=== PATIENT | male | born 1965 | race Caucasian/White ===

== ENCOUNTER 2017-09-22 00:54 | Observation (INO) | payer OTHER ==
[2017-09-22] VITALS (25 sets, daily range): BP systolic 102–142; BP diastolic 61–87
[~2017-09-22] VITALS: Ht 182.9 cm; Wt 106.1 kg
--- OUTSIDE RECORDS SUMMARY | 2017-09-22 01:01 | XMS REPORT ---
Author Author JANEEN MARCELINO Organization [facility] Address [address] [place] [address] Care Team Providers Care Resolution Expert Name Role Phone MARCELINO VERNON Unavailable PROBLEMS Type Condition ICD9-CM Code [id number] Code Onset Dates Condition Status SNOMED Code Problem Panic disorder F41.0 Active 617692035 Problem Prediabetes R73.09 Active 9743866 Problem Left knee pain M25.562 Active 70836973 Problem Essential hypertension I10 Active 53969340 Problem Right knee pain M25.561 Active 16851807 ALLERGIES Substance Reaction Event Type Date Status N.K.D.A. Unknown Non Drug Allergy Apr, Unknown SOCIAL HISTORY No smoking Hx information available PLAN OF CARE Activity Details Follow Up 6 Months Reason:HTN VITAL SIGNS Height 72 in 2016-04-21 Weight 287 lbs 2016-04-21 Temperature 97.6 degrees Fahrenheit 2016-04-21 Heart Rate 74 bpm 2016-04-21 Respiratory Rate 18 2016-04-21 BMI 38.92 kg/m2 2016-04-21 Blood pressure systolic 110 mmHg 2016-04-21 Blood pressure diastolic 84 mmHg 2016-04-21 MEDICATIONS Medication Instructions Dosage Frequency Start Date End Date Duration Status Atenolol 50 MG Orally Once a day 1 tablet 24h 90 days Active Meloxicam 15 MG TAKE ONE TABLET BY MOUTH DAILY 90 Active Xanax 0.25 MG Orally Three times a day as needed 1 tablet Apr, Active Hydrochlorothiazide 25 MG Orally Once a day 1 tablet 24h 90 days Active Lisinopril 40 MG Orally Once a day 1 tablet 24h 90 days Active RESULTS No Results PROCEDURES Procedure Date Ordered Related Diagnosis Body Site COMPREHEN METABOLIC PANEL Apr 21, 2016 LIPID PANEL Apr 21, 2016 VENIPUNCT, ROUTINE* Apr 21, 2016 Office Visit, Est Pt., Level 3 Apr 21, 2016 IMMUNIZATIONS No Known Immunizations
--- OUTSIDE RECORDS SUMMARY | 2017-09-22 01:01 | XMS REPORT ---
Author Author MARCELINO VERNON [facility] Address [address] [place] [address] Care Team Providers Care Key Account Executive Name Role Phone MARCELINO VERNON Unavailable PROBLEMS Type Condition ICD9-CM Code [id number] Code Onset Dates Condition Status SNOMED Code Problem Panic disorder F41.0 Active 653449028 Problem Prediabetes R73.09 Active 8743391 Problem Right knee pain M25.561 Active 64899327 Problem Essential hypertension I10 Active 69404875 Problem Left knee pain M25.562 Active 06171417 ALLERGIES Unknown Allergies SOCIAL HISTORY No smoking Hx information available PLAN OF CARE VITAL SIGNS MEDICATIONS Unknown Medications RESULTS No Results PROCEDURES No Known procedures IMMUNIZATIONS No Known Immunizations
--- OUTSIDE RECORDS SUMMARY | 2017-09-22 01:01 | XMS REPORT ---
Author Author MARCELINO VERNON [facility] Address [address] [place] [address] Care Team Providers Care Commercial Loan Administrator Name Role Phone MARCELINO VERNON Unavailable PROBLEMS Type Condition ICD9-CM Code [id number] Code Onset Dates Condition Status SNOMED Code Problem Panic disorder F41.0 Active 895640624 Problem Prediabetes R73.09 Active 6075738 Problem Left knee pain M25.562 Active 36989639 Problem Essential hypertension I10 Active 89182813 Problem Right knee pain M25.561 Active 72134487 ALLERGIES Unknown Allergies SOCIAL HISTORY No smoking Hx information available PLAN OF CARE VITAL SIGNS MEDICATIONS Medication Instructions Dosage Frequency Start Date End Date Duration Status Meloxicam 15 MG Orally Once a day 1 tablet 24h 90 days Active RESULTS No Results PROCEDURES No Known procedures IMMUNIZATIONS No Known Immunizations
--- OUTSIDE RECORDS SUMMARY | 2017-09-22 01:01 | XMS REPORT ---
Author Author MARCELINO VERNON [facility] Address [address] [place] [address] Care Team Providers Care Information Systems Administrator Name Role Phone MARCELINO VERNON Unavailable PROBLEMS Type Condition ICD9-CM Code [id number] Code Onset Dates Condition Status SNOMED Code Problem Panic disorder F41.0 Active 420005497 Problem Prediabetes R73.09 Active 5979309 Problem Left knee pain M25.562 Active 17603800 Problem Essential hypertension I10 Active 67101559 Problem Right knee pain M25.561 Active 02645223 ALLERGIES Unknown Allergies SOCIAL HISTORY No smoking Hx information available PLAN OF CARE VITAL SIGNS MEDICATIONS Unknown Medications RESULTS No Results PROCEDURES No Known procedures IMMUNIZATIONS No Known Immunizations
--- OUTSIDE RECORDS SUMMARY | 2017-09-22 01:01 | XMS REPORT ---
Author Author MARCELINO VERNON Organization [employer] Address Unknown Phone Unavailable Care Team Providers Care X Ray Physician Name Role Phone MARCELINO VERNON CP Unavailable Allergies No Known Allergies Problems Problem Type Condition Code Onset Dates Condition Status Problem Prediabetes R73.09 Active Problem Essential hypertension I10 Active Problem Panic disorder F41.0 Active Problem Left knee pain M25.562 Active Problem Right knee pain M25.561 Active Medications Medication Code System Code Instructions Start Date End Date Status Dosage Celebrex [facility] [address]-40 200 MG Orally Once a day as needed May 21, 2015 August 26, 2015 1 capsule Results No Known Results Summary Purpose [employer] Submission
--- OUTSIDE RECORDS SUMMARY | 2017-09-22 01:01 | XMS REPORT ---
Author Author MARCELINO VERNON [employer] Address Unknown Phone Unavailable Care Team Providers Care Metal Window Screen Assembler Name Role Phone MARCELINO VERNON CP Unavailable Allergies, Adverse Reactions, Alerts Substance Reaction Event Type N.K.D.A. Info Not Available Non Drug Allergy Problems Problem Type Condition Code Onset Dates Condition Status Assessment Colon cancer screening Z12.11 Active Assessment Dermal nevus D22.9 Active Problem Prediabetes R73.09 Active Problem Essential hypertension I10 Active Problem Panic disorder F41.0 Active Assessment Essential hypertension I10 Active Assessment Panic disorder F41.0 Active Problem Left knee pain M25.562 Active Problem Right knee pain M25.561 Active Medications Medication Code System Code Instructions Start Date End Date Status Dosage Atenolol [facility] [address]-46 50 MG Orally Once a day 1 tablet Meloxicam [facility] 64379121199 15 MG TAKE ONE TABLET BY MOUTH DAILY Lisinopril [facility] [address]-48 40 MG Orally Once a day 1 tablet Xanax [facility] [address]-78 0.25 MG Orally Three times a day as needed Apr 25, 2015 1 tablet Hydrochlorothiazide [facility] [address]-41 25 MG Orally Once a day 1 tablet Celebrex [facility] [address]-38 200 mg October 18, 2013 1 capsule by Oral route 1 time per day PRN pain Procedures Procedure Coding System Code Date COMPLETE CBC W/AUTO DIFF WBC CPT-4 32106 Apr 25, 2015 LIPID PANEL CPT-4 21608 Apr 25, 2015 COMPREHEN METABOLIC PANEL CPT-4 25049 Apr 25, 2015 VENIPUNCT, ROUTINE* CPT-4 40519 Apr 25, 2015 Office Visit, Est Pt., Level 3 CPT-4 25591 Apr 25, 2015 Vital Signs Date/Time: Apr 25, 2015 Temperature 98.8 F Weight 278.4 lbs Height 72 in BMI 37.75 Index Blood Pressure Diastolic 76 mmHg Blood Pressure Systolic 130 mmHg Cardiac Monitoring Heart Rate 64 bpm Results Name Result Date Reference Range Unit Abnormality Flag LIPID PANEL ----HDL Cholesterol 40 91084627 >39 mg/dL ----VLDL Cholesterol Patrice 39 95715289 5-40 mg/dL ----LDL Cholesterol Calc 83 02304980 0-99 mg/dL ----Cholesterol, Total 162 48865267 100-199 mg/dL ----Triglycerides 196 62053917 0-149 mg/dL H CMP ----Globulin, Total 2.3 56777912 1.5-4.5 g/dL ----eGFR If Africn Am 89 71458980 >59 mL/min/1.73 ----eGFR If NonAfricn Am 77 71958136 >59 mL/min/1.73 ----Albumin, Serum 4.4 49764525 3.5-5.5 g/dL ----Sodium, Serum 142 77196069 134-144 mmol/L ----Protein, Total, Serum 6.7 39684971 6.0-8.5 g/dL ----BUN/Creatinine Ratio 17 60294687 9-20 ----Calcium, Serum 9.4 38718735 8.7-10.2 mg/dL ----AST (SGOT) 26 32992887 0-40 IU/L ----Glucose, Serum 123 18179650 65-99 mg/dL H ----Alkaline Phosphatase, S 54 61808747 39-117 IU/L ----Bilirubin, Total 0.8 81829977 0.0-1.2 mg/dL ----Creatinine, Serum 1.11 21032541 0.76-1.27 mg/dL ----A/G Ratio 1.9 71748791 1.1-2.5 ----BUN 19 94193155 6-24 mg/dL ----Carbon Dioxide, Total 24 43432005 18-29 mmol/L ----ALT (SGPT) 21 73486333 0-44 IU/L ----Potassium, Serum 4.2 28836363 3.5-5.2 mmol/L ----Chloride, Serum 102 73030225 97-108 mmol/L ROUTINE VENIPUNCTURE CBC ----MCHC 34.3 90204971 31.5-35.7 g/dL ----MCH 29.8 35432094 26.6-33.0 pg ----Platelets 234 66314514 150-379 x10E3/uL ----RDW 13.8 51418443 12.3-15.4 % ----Immature Granulocytes 0 33132695 % ----Immature Grans (Abs) 0.0 80862542 0.0-0.1 x10E3/uL ----Lymphs 27 04267320 % ----Monocytes 8 03295508 % ----Neutrophils 55 11154093 % ----Neutrophils (Absolute) 4.7 01334720 1.4-7.0 x10E3/uL ----Hematocrit 44.9 13154562 37.5-51.0 % ----Lymphs (Absolute) 2.2 20553040 0.7-3.1 x10E3/uL ----MCV 87 67683878 79-97 fL ----RBC 5.17 87545584 4.14-5.80 x10E6/uL ----Eos 9 22387522 % ----Basos 1 58166120 % ----Hemoglobin 15.4 31731123 12.6-17.7 g/dL ----Baso (Absolute) 0.1 55861377 0.0-0.2 x10E3/uL ----WBC 8.3 22496990 3.4-10.8 x10E3/uL ----Monocytes(Absolute) 0.7 83447465 0.1-0.9 x10E3/uL ----Eos (Absolute) 0.7 61091793 0.0-0.4 x10E3/uL H Summary Purpose [employer] Submission
--- OUTSIDE RECORDS SUMMARY | 2017-09-22 01:01 | XMS REPORT ---
Author Author MARCELINO VERNON Organization [employer] Address Unknown Phone Unavailable Care Team Providers Care Receivables Specialist Name Role Phone MARCELINO VERNON CP Unavailable Allergies No Known Allergies Problems Problem Type Condition Code Onset Dates Condition Status Problem Prediabetes R73.09 Active Problem Essential hypertension I10 Active Problem Panic disorder F41.0 Active Problem Left knee pain M25.562 Active Problem Right knee pain M25.561 Active Medications Medication Code System Code Instructions Start Date End Date Status Dosage Celebrex [facility] [address]-08 200 MG Orally Once a day as needed May 21, 2015 August 19, 2015 1 capsule Results No Known Results Summary Purpose [employer] Submission
[2017-09-22] MEDS ORDERED: DEXAMETHASONE PF 10 MG/ML (DECADRON) VIAL IV STA ×2 (01:35→02:19)
[2017-09-22] MEDS ORDERED: diphenhydrAMINE 50 MG/ML INJ (BENADRYL) IV STA (01:35)
[2017-09-22] MEDS ORDERED: methylPREDNISolone 125 MG (Solu-MEDROL) VIAL IV STA (01:35)
[2017-09-22] MEDS ORDERED: raNItidine 50 MG/2 ML INJ (ZANTAC) IV STA (01:35)
[2017-09-22] MEDS ORDERED: DEXAMETHASONE 10 MG/ML (DECADRON) 1 ML VIAL ONE ×2 (01:39→02:24)
[2017-09-22] MEDS ORDERED: EPINEPHrine INJECTION 1 MG/ML AMP IM ONE ×2 (01:45→02:30)
--- NOTE | 2017-09-22 01:55 | ED EENT ---
History of Present Illness General Chief Complaint: Oral/Throat Problems Stated Complaint: BIT TONGUE-SWOLLEN,CAN HARDLY TALK Nursing Triage Note: PT PRESENTS TO ER WITH COMPLAINT OF SWOLLEN TONGUE. PT STATES IT STARTED AROUND 8PM. STATES HE TOOK TYLENOL PM AROUND MIDNIGHT. STATES HE FELL ASLEEP AND MIGHT OF BITTEN TONGUE WHILE SLEEPING SINCE IT IS SORE. DOES NOT KNOW WHAT CAUSED THE SWELLING. STATES HE STARTED AMOXICILLIN AND DIFLUCAN ON TUESDAY. Source: patient History of Present Illness Date Seen by Provider: Sep 22, 2017 Time Seen by Provider: 01:25 Initial Comments PT ARRIVES VIA POV FROM HOME C/O TONGUE SWELLING SINCE 1999 GISSELLE TOOK TYLENOL PM JUST BEFORE MIDNIGHT--WAS ABLE TO SWALLOW OK AT THAT TIME WENT TO BED AROUND MIDNIGHT AND WOKE UP AT 0030 CHOKING AND HAVING DIFFICULTY SWALLOWING SALIVA, MAKING LOTS OF SALIVA NO SHORTNESS OF BREATH OR WHEEZING NO RASH OR ITCHING OR SWELLING ANYWHERE ELSE PT IS ON LISINOPRIL + ATENOLOL FOR HTN, HAS BEEN ON FOR YEARS, AND NO RECENT CHANGES IN DOSES PT IS ALSO ON DIFLUCAN AND AMOXIL SINCE TUESDAY FOR URI SYMPTOMS AND POSSIBLE THRUSH AND "POSSIBLE PNEUMONIA" --HAS HAD THOSE SYMPTOMS FOR OVER A WEEK 3 WEEKS AGO WAS HAVING "GI ISSUES" AND WAS GIVEN RX FOR CIPRO-THOSE SYMPTOMS RESOLVED, THEN HE BEGAN HAVING COUGH/CONGESTION SYMPTOMS STATES HE FELT GREAT YESTERDAY AND NO RESPIRATORY SYMPTOMS HAS BEEN ON ALL OF THESE MEDICATIONS BEFORE AND NOT HAD ANY PROBLEMS NO HISTORY OF SIMILAR [facility]CP: [facility], JAMIE CHAVEZ/DR. DOWNING Allergies and Home Medications Allergies Coded Allergies: No Known Drug Allergies (Unverified , 09/22/17) Patient Home Medication List Home Medication List Reviewed: Yes Review of Systems Constitutional: no symptoms reported Eyes: No Symptoms Reported Ears: No Symptoms Reported Nose: no symptoms reported Mouth: see HPI Throat: see HPI Respiratory: no symptoms reported, see HPI; No cough, No short of breath, No stridor, No wheezing Cardiovascular: no symptoms reported Gastrointestinal: no symptoms reported Musculoskeletal: no symptoms reported Skin: no symptoms reported Neurological: No Symptoms Reported Hematologic/Lymphatic: No Symptoms Reported Immunological/Allergic: no symptoms reported Past Phirhke-Jalbpy-Jlzfyj Hx Patient Social History Alcohol Use: Denies Use Recreational Drug Use: No Smoking Status: Never a Smoker Recent Foreign Travel: No Contact w/Someone Who Travel: No Recent Infectious Disease Expo: No Recent Hopitalizations: No Immunizations Up To Date Tetanus Booster (TDap): Unknown PED Vaccines UTD: Yes Seasonal Allergies Seasonal Allergies: No Past Medical History Surgeries: Yes Tonsillectomy Respiratory: No Cardiac: Yes Hypertension Neurological: No Genitourinary: No Gastrointestinal: No Musculoskeletal: Yes Arthritis Endocrine: No HEENT: No Cancer: No Psychosocial: No Integumentary: No Blood Disorders: No Physical Exam Vital Signs Vital Signs - First Documented 09/22/17 09/22/17 01:18 03:00 Temp 96.1 Pulse 77 Resp 20 B/P (MAP) 129/87 (101) Pulse Ox 98 O2 Delivery Room Air O2 Flow Rate 2.00 General Appearance: WD/WN, no apparent distress, other (VOICE VERY MUFFLED. ) Eyes: bilateral eye normal inspection, bilateral eye PERRL Mouth/Throat: voice changes (VOICE VERY MUFFLED. ABLE TO HANDLE SECRETIONS AT THIS TIME. TONGUE MARKEDLY SWOLLEN--RIGHT > LEFT SIDE AND TONGUE IS TOUCHING ROOF OF MOUTH, BUT NOT PROTRUDING BEYOND LIPS .) Neck: other (MODERATE SWELLING TO ANTERIOR ASPECT OF RIGHT SIDE OF NECK) Cardiovascular: regular rate, rhythm, no murmur Respiratory: normal breath sounds, no respiratory distress, no accessory muscle use Neurologic/Psychiatric: driller brake lining II-XII nml as tested, no motor/sensory deficits, alert, normal mood/affect, oriented x 3 Skin: normal color, warm/dry; No rash Progress/Results/Core Measures Results/Orders My Orders Orders - JUSTUS CARVALHO DO Saline Lock/Iv-Start (09/22/17 01:35) Monitor-Rhythm Ecg Trace Only (09/22/17 01:35) Diphenhydramine Injection (Benadryl Inje (09/22/17 01:35) Dexamethasone Pf Injection (Decadron Pf (09/22/17 01:35) Methylprednisolone Sod Succ (Solu-Medrol (09/22/17 01:35) Ranitidine Injection (Zantac Injection) (09/22/17 01:35) Epinephrine 1 Mg Injection (Adrenalin I (09/22/17 01:45) Dexamethasone Injection (Decadron Inject (09/22/17 01:39) Epinephrine 1 Mg Injection (Adrenalin I (09/22/17 02:30) Diphenhydramine Injection (Benadryl Inje (09/22/17 02:30) Dexamethasone Pf Injection (Decadron Pf (09/22/17 02:19) Dexamethasone Injection (Decadron Inject (09/22/17 02:24) Medications Given in ED Current Medications Medications Dose Ordered Sig/Juan F Route Start Time Stop Time Status Last Admin Dose Admin Diphenhydramine HCl 50 mg ONCE ONCE IVP 09/22/17 02:30 09/22/17 02:31 DC 09/22/17 02:27 50 MG Epinephrine HCl 0.3 mg ONCE ONCE IM 09/22/17 01:45 09/22/17 01:46 DC 09/22/17 01:46 0.3 MG Epinephrine HCl 0.3 mg ONCE ONCE IM 09/22/17 02:30 09/22/17 02:31 DC 09/22/17 02:28 0.3 MG Vital Signs/I&O 09/22/17 09/22/17 09/22/17 09/22/17 01:18 02:30 03:00 03:05 Temp 96.1 Pulse 77 83 89 Resp 20 28 B/P (MAP) 129/87 (101) 144/73 Pulse Ox 98 97 96 O2 Delivery Room Air Room Air Nasal Cannula O2 Flow Rate 2.00 09/22/17 09/22/17 03:38 04:00 Pulse Ox 90 96 O2 Delivery Room Air Nasal Cannula O2 Flow Rate 2.00 Blood Pressure Mean: 101 Progress Progress Note : Progress Note NO DETERIORATION IN PT'S CONDITION DURING ER STAY TONGUE WITH SLIGHT DECREASE IN SWELLING AT TIME OF ADMIT Departure Communication (Admissions) 0719--SPOKE WITH DR. CAMPOS, ACCEPTS PT FOR ADMIT Impression Primary Impression: ANGIOEDEMA OF TONGUE Additional Impression: GISSEL INHIBITOR USE Disposition: 09 ADMITTED INPATIENT Condition: Stable Admissions Decision to Admit Reason: Admit from ER (General) Decision to Admit/Date: Sep 22, 2017 Time/Decision to Admit Time: 02:30 Departure-Patient Inst. Referrals: JONH DOWNING MD (PCP/Family) Primary Care Physician JUSTUS CARVALHO DO Sep 22, 2017 01:55
[2017-09-22] MEDS ORDERED: diphenhydrAMINE 50 MG/ML INJ (BENADRYL) IVP ONE (02:30)
[2017-09-22] MEDS ORDERED: KETOROLAC 30 MG/ML VIAL ONE (04:43)
[2017-09-22] MEDS ORDERED: EPINEPHrine INJECTION 1 MG/ML AMP IM PRN (04:45)
[2017-09-22] MEDS ORDERED: fentaNYL INJECTION 100 MCG/2 ML AMP IVP ONE (04:45)
[2017-09-22] MEDS ORDERED: 1/2 NS IV SOLUTION 1,000 ML IV SCH (04:45)
[2017-09-22] MEDS ORDERED: KETOROLAC 30 MG/ML VIAL IVP ONE ×2 (04:45)
[2017-09-22] MEDS: diphenhydrAMINE 50 MG/ML INJ (BENADRYL) IV SCH ×3 (04:45→13:09)
[2017-09-22] MEDS: fentaNYL INJECTION 100 MCG/2 ML AMP IV PRN ×2 (04:46→05:28)
--- NOTE | 2017-09-22 05:25 | Pulmonary Consultation ---
History of Present Illness History of Present Illness Date of Consultation 09/22/17 05:18 Time Seen by Provider: 05:18 Date of Admission History of Present Illness 52yo with hx of HTN and on lisonopril for 2 yrs presented to ED secondary swollen tongue. He woke up around midnight secondary to his swollen sore tongue. symptoms started around 2000 last night and has progressively been getting worse. He was recently started on Augmentin and diflucan as out patient. Denies rash purities. He also complains of dysphagia. Pt is currently NPO. I am consulted for pulmonary management. Allergies and Home Medications Allergies Coded Allergies: No Known Drug Allergies (Unverified , 09/22/17) Past Pcredxy-Zlpsju-Ekwaqm Hx Patient Social History Alcohol Use: Denies Use Recreational Drug Use: No Smoking Status: Never a Smoker Recent Foreign Travel: No Contact w/Someone Who Travel: No Recent Infectious Disease Expo: No Recent Hopitalizations: No Immunizations Up To Date Tetanus Booster (TDap): Unknown PED Vaccines UTD: Yes Seasonal Allergies Seasonal Allergies: No Past Medical History Surgeries: Yes Tonsillectomy Respiratory: No Cardiac: Yes Hypertension Neurological: No Genitourinary: No Gastrointestinal: No Musculoskeletal: Yes Arthritis Endocrine: No HEENT: No Cancer: No Psychosocial: No Integumentary: No Blood Disorders: No Review of Systems Time Seen by Provider: 05:25 Constitutional: Sweats, Weakness, Malaise; No: Fever, Chills, Other Eyes: No: Pain, Vision change, Conjunctivae inflammation, Eyelid inflammation, Other, Redness ENT: Nose congestion, Throat pain, Throat swelling; No: Ear pain, Ear discharge , Nose pain, Nose discharge, Mouth pain, Mouth swelling, Other Respiratory: No: Cough, Dry, Shortness of breath, SOB with excertion, Wheezing , Hemoptysis, Pleuritic Pain, Sputum, Wheezing, Other Cardiovascular: Paroxysmal Noc. Dyspnea; No: Chest Pain, Palpitations, Orthopnea, Edema, Lt Headedness, Other Gastrointestinal: No: Nausea, Vomiting, Abdominal Pain, Diarrhea, Constipation , Melena, Hematochezia, Other Neurological: Weakness Exam Exam Vital Signs Date Time Temp Pulse Resp B/P (MAP) Pulse Ox O2 Delivery O2 Flow Rate FiO2 09/22/17 04:00 96 Nasal Cannula 2.00 09/22/17 03:38 90 Room Air 09/22/17 03:05 89 09/22/17 03:00 96 Nasal Cannula 2.00 09/22/17 02:30 83 28 144/73 97 Room Air 09/22/17 01:18 96.1 77 20 129/87 (101) 98 Room Air General Appearance: Anxious, Mild Distress HEENT: No PERRL/EOMI, No TMs Normal, No Normal ENT Inspection, No Pharynx Normal Neck: Full Range of Motion, Normal Inspection, Non Tender, Supple Respiratory: Lungs Clear, No Accessory Muscle Use, No Respiratory Distress, Decreased Breath Sounds Cardiovascular: Regular Rate, Rhythm, No Edema; No No Gallop, No No JVD, No No Murmur; Normal Peripheral Pulses; No Bradycardia, No Diastolic Murmur, No Systolic Murmur, No Extra Beats, No Friction Rub, No Gallop/S3, No Gallop/S4, No Irregularly Irregular, No JVD, No Tachycardia, No Other Capillary Refill: Less Than 3 Seconds Gastrointestinal: normal bowel sounds, non tender, soft, no organomegaly, no pulsatile mass Extremity: Normal Capillary Refill, Normal Inspection, Normal Range of Motion, Non Tender, No Calf Tenderness Neurologic/Psychiatric: Alert, Oriented x3, No Motor/Sensory Deficits Skin: Normal Color, Warm/Dry Lymphatic: No Adenopathy Assessment/Plan Assessment/Plan Acute angioedema probably secondary to lisinopril - doubt anaphylaxis from Abx - - improving since admission -Benadryl, steroids, pepcid s/p epi -monitor in ICU -D/C Lisinopril Dysphagia -Pt is NPO and aspiration precautions Diaphoresis/afebrile- probably secondary to epi - Accu Check, Labs pending, Pt has no labs or CXR at this time. Orders have been placed. 255 TAVO ROJO DO Sep 22, 2017 05:25
[2017-09-22 05:59] LABS: BASOPHILS % (AUTO) 0 % (0-10); EOSINOPHILS % (AUTO) 0 % (0-10); HEMATOCRIT 37 % (40-54); HEMOGLOBIN 12.5 G/DL (13.3-17.7); LYMPHOCYTES # (AUTO) 0.6 X 10^3 (1.0-4.0); LYMPHOCYTES % (AUTO) 4 % (12-44); MEAN CORPUSCULAR HEMOGLOBIN 29 PG (25-34); MEAN CORPUSCULAR HGB CONC 33 G/DL (32-36); MEAN CORPUSCULAR VOLUME 86 FL (80-99); MEAN PLATELET VOLUME 11.2 FL (7.4-10.4); MONOCYTES # (AUTO) 0.1 X 10^3 (0.0-1.0); MONOCYTES % (AUTO) 1 % (0-12); NEUTROPHILS # (AUTO) 13.1 X 10^3 (1.8-7.8); NEUTROPHILS % (AUTO) 95 % (42-75); PLATELET COUNT 443 10^3/uL (130-400); RED BLOOD COUNT 4.33 10^6/uL (4.35-5.85); RED CELL DISTRIBUTION WIDTH 12.8 % (10.0-14.5); WHITE BLOOD COUNT 13.8 10^3/uL (4.3-11.0)
[2017-09-22] MEDS ORDERED: MAGNESIUM 1 GM/100 ML IVPB 100 ML IV SCH (06:00)
[2017-09-22] MEDS ORDERED: KCL 20 MEQ TAB (K-DUR) PO SCH (06:00)
[2017-09-22] MEDS ORDERED: POTASSIUM CL 10MEQ/50ML IVPB 50 ML IV SCH (06:00)
[2017-09-22 06:18] LABS: BAND NEUTROPHILS 0 %; EOSINOPHILS % (MANUAL) 0 %; LYMPHOCYTES % (MANUAL) 5 %; MONOCYTES % (MANUAL) 0 %; NEUTROPHILS % (MANUAL) 95 %; RBC MORPH NORMAL
[2017-09-22 06:39] LABS: BUN/CREATININE RATIO 27; CARBON DIOXIDE 22 MMOL/L (21-32); CHLORIDE 107 MMOL/L (98-107); CREATININE SERUM 1.24 MG/DL (0.60-1.30); GFR ESTIMATED > 60; GLUCOSE 210 MG/DL (70-105); MAGNESIUM 1.9 MG/DL (1.8-2.4); PHOSPHORUS 2.1 MG/DL (2.3-4.7); POTASSIUM 4.1 MMOL/L (3.6-5.0); SODIUM 141 MMOL/L (135-145)
[2017-09-22] MEDS ORDERED: ATEN50TA PO (08:25)
[2017-09-22] MEDS ORDERED: FLUC100T PO (08:25)
[2017-09-22] MEDS ORDERED: HYDR25TA4 PO (08:25)
[2017-09-22] MEDS ORDERED: LISI40TA PO (08:25)
[2017-09-22] MEDS ORDERED: AMOX-358 PO (08:25)
[2017-09-22] MEDS ORDERED: MELO15TA39 PO (08:25)
[2017-09-22] MEDS ORDERED: MULT-35 PO (08:45)
[2017-09-22] MEDS ORDERED: ASCO500T5 PO (08:45)
[2017-09-22] MEDS ORDERED: ASPI-999 PO (08:45)
[2017-09-22] MEDS: methylPREDNISolone 125 MG (Solu-MEDROL) VIAL IV SCH ×2 (08:49→14:42)
[2017-09-22] MEDS ORDERED: raNItidine 50 MG/2 ML INJ (ZANTAC) IV SCH (09:00)
[2017-09-22] MEDS ORDERED: FAMOTIDINE 20MG/2ML IV (PEPCID) IVP SCH (09:00)
--- NOTE | 2017-09-22 09:43 | Diagnostic Imaging Report ---
Portable erect AP chest at 6:33. Indication: Dyspnea There are no prior studies available for comparison. The heart size is within normal limits. The lungs are clear. There is no evidence for failure, pneumonia or for pleural effusion. The mediastinum is not widened. The osseous structures are intact. Impression: 1. There is no evidence for acute cardiopulmonary abnormality. 2. If clinical concern regarding an underlying abnormality persists, then followup PA and lateral chest would be recommended for further study. Dictated by: Dictated on workstation # [id number]
--- NOTE | 2017-09-22 11:02 | History & Physical-Hospitalist ---
History of Present Illness HPI/Chief Complaint CC: Acute angioedema and severe swelling of the tongue HPI: This is a 52-year-old white male clinic patient of Dr. Jain in [place], [place] who is a nurse at [employer] with a past medical history of hypertension and pneumonia one year ago that presented to the ER when a swollen tongue awoke him from sleep and went to the ER because he was frightened that it was closing off his airway. He reports that he felt his tongue swelling a bit before he went to bed at 11 o'clock and took 2 Tylenol and went to sleep but it worsened rapidly to the point he could no longer talk and was having difficulty breathing. He was assessed in the ER found to have severe angioedema with swollen tongue concern for airway obstruction C was given protocol medication for the angioedema and likely cause was the GISSEL inhibitor that he had been maintained on for 5-6 years. He does tell me that every time he accidentally bit his tongue or when he grinds his teeth that night he is tongue would become very swollen and this is been going on for several years. He also reports that he had a gastrointestinal issue completed Cipro antibiotic regimen and then had another upper respiratory illness and was given Augmentin then he was diagnosed with thrush and was taken Diflucan so his tongue was actually inflamed the last couple of days due to the thrush. At this current time patient is feeling better but due to the fact that the tongue is still very swollen and still an airway obstruction risk he will be monitored closely in the ICU maintained on IV steroids and medications with histamine blockers and will discontinue the GISSEL inhibitor. Source: patient, RN/ Exam Limitations: no limitations Date Seen 09/22/17 Time Seen by Provider: 10:00 Attending Physician Radha Lopez Wen-Chou MD Referring Physician Date of Admission Sep 22, 2017 at 02:30 Home Medications & Allergies Home Medications Reviewed patient Home Medication Reconciliation performed by pharmacy medication reconciliations statistical technician and/or nursing. Patients Allergies have been reviewed. Allergies Allergies Coded Allergies No Known Drug Allergies (Unverified09/22/17) Past Xjksael-[id number]-[id number] Hx Past Med/Social Hx: Reviewed Nursing Past Med/Soc Hx, Reviewed and Corrections made Patient Social History Marrital Status: single Employed/Student: employed (RN [employer]) Alcohol Use: Denies Use Recreational Drug Use: No Smoking Status: Never a Smoker Physical Abuse Screen: No Sexual Abuse: No Recent Foreign Travel: No Contact w/other who traveled: No Recent Hopitalizations: No Recent Infectious Disease Expo: No Immunizations Up To Date Tetanus Booster (TDap): Unknown Pediatric: Yes Seasonal Allergies Seasonal Allergies: No Past Medical History Surgeries: Tonsillectomy Respiratory: Pneumonia (07/02) Cardiac: Hypertension Musculoskeletal: Arthritis History of Blood Disorders: No Family History Hypertension Review of Systems Constitutional: see HPI EENTM: mouth pain, throat pain, throat swelling Respiratory: no symptoms reported Cardiovascular: no symptoms reported Gastrointestinal: no symptoms reported Genitourinary: no symptoms reported Musculoskeletal: no symptoms reported Skin: no symptoms reported Psychiatric/Neurological: No Symptoms Reported All Other Systems Reviewed Negative Unless Noted: Yes Physical Exam Physical Exam Vital Signs Vital Signs - First Documented 09/22/17 09/22/17 01:18 03:00 Temp 96.1 Pulse 77 Resp 20 B/P (MAP) 129/87 (101) Pulse Ox 98 O2 Delivery Room Air O2 Flow Rate 2.00 Capillary Refill : Less Than 3 Seconds General Appearance: No Apparent Distress, WD/WN Eyes: Bilateral Eye Normal Inspection, Bilateral Eye PERRL HEENT: PERRL/EOMI, Pharynx Normal, Other (tongue edema noted) Neck: Full Range of Motion, Normal Inspection, Non Tender, Supple, Carotid Bruit Respiratory: Chest Non Tender, Lungs Clear, Normal Breath Sounds, No Accessory Muscle Use, No Respiratory Distress Cardiovascular: Regular Rate, Rhythm, No Edema, No Gallop, No JVD, No Murmur, Normal Peripheral Pulses Gastrointestinal: Normal Bowel Sounds, No Organomegaly, No Pulsatile Mass, Non Tender, Soft Back: Normal Inspection, No CVA Tenderness, No Vertebral Tenderness Extremity: Normal Capillary Refill, Normal Inspection, Normal Range of Motion, Non Tender, No Calf Tenderness, No Pedal Edema Neurologic/Psychiatric: Alert, Oriented x3, No Motor/Sensory Deficits, Normal Mood/Affect Skin: Normal Color, Warm/Dry Lymphatic: No Adenopathy Results Results/Procedures Labs Laboratory Tests 09/22/17 05:50 Patient resulted labs reviewed. Assessment/Plan Admission Diagnosis Severe angioedema with tongue swelling causing respiratory tract obstruction Admission Status: Observation Assessment and Plan Plan: Continue IV steroids Continue histamine blockers Monitor for respiratory obstruction closely Diagnosis/Problems Diagnosis/Problems (1) Angio-edema Status: Acute Qualifiers: Encounter type: initial encounter Qualified Codes: T78.3XXA - Angioneurotic edema, initial encounter (2) Airway obstruction Status: Acute (3) Severe tongue swelling Status: Acute (4) Hypertension Status: Chronic Qualifiers: Hypertension type: essential hypertension Qualified Codes: I10 - Essential (primary) hypertension (5) GISSEL inhibitor intolerance Status: Acute (6) URI (upper respiratory infection) Status: Resolved Qualifiers: URI type: unspecified viral URI Qualified Codes: J06.9 - Acute upper respiratory infection, unspecified (7) Thrush Status: Acute (8) Bruxism (teeth grinding) Status: Chronic Clinical Quality Measures DVT/VTE Risk/Contraindication: Risk Factor Score Per Nursin RFS Level Per Nursing on Admit: 1=Low/No VTE PPX RDAHA LOPEZ DO Sep 22, 2017 11:01
[2017-09-22] MEDS ORDERED: fluCOnazole (DIFLUCAN) 100 MG TAB PO SCH (11:29)
[2017-09-22] MEDS ORDERED: AMLO2.5T2 PO (13:22)
[2017-09-22] MEDS ORDERED: FAMO-119 PO (13:22)
[2017-09-22] MEDS ORDERED: PRED10TA22 PO (13:22)
[2017-09-23] MEDS ORDERED: ATENOLOL 50 MG (TENORMIN) TAB PO SCH (09:00)
[2017-09-23] MEDS ORDERED: ASPIRIN 81 MG CHEW (CHILDREN'S ASA) PO SCH (09:00)
== END 2017-09-22 13:22 | disposition home or self-care (01) ==
LOC: EDUNIT# 00:54 → ER 00:57 → ICU 02:30 → UNDOADMOB 02:30 → ICU 03:00 → UNDODISOB 16:30
PROVIDERS: ADMIT Internal Medicine; ATTEND Internal Medicine
DX: T78.3XXA Angioneurotic edema, initial encounter (principal); J98.8 Other specified respiratory disorders; J06.9 Acute upper respiratory infection, unspecified; B37.0 Candidal stomatitis; R13.10 Dysphagia, unspecified; G47.63 Sleep related bruxism; I10 Essential (primary) hypertension; R61 Generalized hyperhidrosis; T46.4X5A Adverse effect of angiotensin-converting-enzyme inhibitors, initial encounter
CPT/HCPCS: 36415; 71045; 80048; 82962; 83735; 84100; 85007; 85027; 87081; 93041; 96372; 96374; 96375; 96376; G0378